=== PATIENT | male | born 1975 | race Caucasian/White ===

== ENCOUNTER → 2019-05-09 | Outpatient (CLI) | payer OTHER | LOC: CT 10:02 | PROVIDERS: ATTEND Internal Medicine Critical Care Medicine | DX: R06.02 Shortness of breath (principal); J44.9 Chronic obstructive pulmonary disease, unspecified; E66.9 Obesity, unspecified; R68.89 Other general symptoms and signs; F17.290 Nicotine dependence, other tobacco product, uncomplicated ==